=== PATIENT | female | born 1960 | race Hispanic/Latino ===

== ENCOUNTER 2022-07-25 09:01 | Emergency (ER) | payer BC, OTHER ==
[~2022-07-25] VITALS: Ht 157.5 cm; Wt 72.6 kg
[2022-07-25 09:25] LABS: BASOPHILS % (AUTO) 0.3 % (0.0-5.0); EOSINOPHILS % (AUTO) 1.7 % (0.0-8.0); LYMPHOCYTES % (AUTO) 14.5 % (21.0-51.0); MEAN CORPUSCULAR HEMOGLOBIN 28.4 pg (27.0-33.0); MEAN CORPUSCULAR HGB CONC 32.6 g/dL (32.0-36.0); MEAN CORPUSCULAR VOLUME 87.1 fL (79-99); MONOCYTES % (AUTO) 6.1 % (3.0-13.0); NEUTROPHILS % (AUTO) 76.9 % (40.0-77.0); PLATELET COUNT (AUTO) 335 K/uL (130-400); RED BLOOD CELL COUNT(AUTO) 4.82 MIL/uL (4.00-5.50); RED CELL DISTRIBUTION WIDTH 12.8 % (11.0-15.5); WHITE BLOOD COUNT (AUTO) 11.9 K/uL (4.8-10.8)
[2022-07-25] MEDS ORDERED: CLOPIDOGREL 300MG TAB PO ONE (09:30)
[2022-07-25] MEDS ORDERED: ASPIRIN 81MG CHEW TAB PO ONE (09:30)
[2022-07-25 09:41] LABS: INR 0.93 (0.85-1.15); PROTHROMBIN TIME 9.8 SEC (9.6-11.6)
[2022-07-25 09:42] LABS: PARTIAL THROMBOPLASTIN TIME 25.5 SEC (26.3-35.5)
[2022-07-25 09:43] LABS: ALBUMIN 3.7 g/dL (3.5-5.0); CREATININE 1.2 mg/dL (0.5-1.5); POTASSIUM 4.3 mmol/L (3.5-5.1); TOTAL PROTEIN, SERUM 8.1 g/dL (6.0-8.3)
[2022-07-25] MEDS ORDERED: IOHEXOL 350 MG/ML 100ML INFUS..BTL IV ONE (09:46)
[2022-07-25 10:10] LABS: B-TYPE NATRIURETIC PEPTIDE 49 pg/mL (0-100)
[2022-07-25 11:33] LABS: APPEARANCE,URINE CLEAR (CLEAR); BILIRUBIN,URINE NEGATIVE (NEGATIVE); COLOR,URINE LIGHT-YELLOW (YELLOW); GLUCOSE, URINE (UA) >=1000 mg/dL (NEGATIVE); KETONES,URINE NEGATIVE (NEGATIVE); LEUKOCYTE ESTERASE ,URINE NEGATIVE Leu/uL (NEGATIVE); NITRATE,URINE NEGATIVE (NEGATIVE); OCCULT BLOOD,URINE NEGATIVE (NEGATIVE); PH,URINE 5.5 (5.0-8.0); PROTEIN,URINE NEGATIVE (NEGATIVE); UROBILINOGEN,URINE 0.2 mg/dL (0.2-1.0)
[2022-07-25 11:40] LABS: MUCUS,URINE RARE LPF (None Seen); RBC,URINE 0-1 /HPF (0-1); SQUAMOUS EPITHELIAL CELL,UR RARE /HPF (0-2)
[2022-07-25 14:02] VITALS: BP 126/72
== END 2022-07-25 14:18 | disposition home or self-care (01) ==
LOC: EDH 09:01
DX: R20.2 Paresthesia of skin (principal)
CPT/HCPCS: 99291; 70496; 70551; 71045; 82550; 83721; 84484; 80053; 83880; 85025; 85610; 85730; 82948; 81001; 36415; 70498; 93005; 70450; Q9967

== ENCOUNTER 2023-07-27 11:15 | Emergency (ER) | payer BC ==
[~2023-07-27] VITALS: Ht 162.6 cm; Wt 78.0 kg
[2023-07-27 12:48] LABS: BASOPHILS # (AUTO) 0.05 K/uL (0.00-0.20); BASOPHILS % (AUTO) 0.5 % (0.0-5.0); EOSINOPHILS # (AUTO) 0.15 K/uL (0.00-0.70); EOSINOPHILS % (AUTO) 1.6 % (0.0-8.0); HEMATOCRIT 40.3 % (36-48); IMMATURE GRANULOCYTE ABSOLUTE 0.04 K/uL (0-1); LYMPHOCYTES # (AUTO) 1.4 K/uL (1.0-4.8); LYMPHOCYTES % (AUTO) 15.6 % (21.0-51.0); MEAN CORPUSCULAR HEMOGLOBIN 29.4 pg (27.0-33.0); MEAN CORPUSCULAR HGB CONC 34.5 g/dL (32.0-36.0); MEAN CORPUSCULAR VOLUME 85.2 fL (79-99); MONOCYTES # (AUTO) 0.7 K/uL (0.1-1.0); MONOCYTES % (AUTO) 7.2 % (3.0-13.0); NEUTROPHILS # (AUTO) 6.8 K/uL (1.8-7.7); NEUTROPHILS % (AUTO) 74.7 % (40.0-77.0); PLATELET COUNT (AUTO) 343 K/uL (130-400); RED BLOOD CELL COUNT(AUTO) 4.73 MIL/uL (4.00-5.50); RED CELL DISTRIBUTION WIDTH 13.2 % (11.0-15.5); WHITE BLOOD COUNT (AUTO) 9.1 K/uL (4.8-10.8)
[2023-07-27 13:03] LABS: ALBUMIN 3.6 g/dL (3.5-5.0); BILIRUBIN,TOTAL 0.3 mg/dL (0.2-1.0); CREATININE 1.5 mg/dL (0.5-1.5); POTASSIUM 4.1 mmol/L (3.5-5.1)
[2023-07-27 15:18] VITALS: BP 113/72; PULSE 72; RESP 18; O2SAT 97
[2023-07-27] MEDS: 0.9%NACL 1000ML 1,000 ML IV ONE (15:21)
[2023-07-27 15:27] LABS: ADD UA MICROSCOPIC YES; APPEARANCE,URINE CLEAR (CLEAR); BILIRUBIN,URINE NEGATIVE (NEGATIVE); COLOR,URINE LIGHT-YELLOW (YELLOW); GLUCOSE, URINE (UA) >=1000 mg/dL (NEGATIVE); KETONES,URINE NEGATIVE (NEGATIVE); LEUKOCYTE ESTERASE ,URINE NEGATIVE Leu/uL (NEGATIVE); NITRATE,URINE NEGATIVE (NEGATIVE); OCCULT BLOOD,URINE NEGATIVE (NEGATIVE); PROTEIN,URINE NEGATIVE (NEGATIVE); UROBILINOGEN,URINE 0.2 mg/dL (0.2-1.0)
[2023-07-27 15:29] LABS: SQUAMOUS EPITHELIAL CELL,UR RARE /HPF (0-2); WBC,URINE 0-1 /HPF (0-1)
[2023-07-27] MEDS ORDERED: L AC460C PO (16:23)
== END 2023-07-27 16:35 | disposition home or self-care (01) ==
LOC: EDH 11:15
DX: E11.65 Type 2 diabetes mellitus with hyperglycemia (principal); I10 Essential (primary) hypertension; E78.00 Pure hypercholesterolemia, unspecified; Z90.49 Acquired absence of other specified parts of digestive tract; Z98.890 Other specified postprocedural states
CPT/HCPCS: 99283; 96360; 82270; 80053; 85025; 86850; 86900; 86901; 81001; 36415; J7030

== ENCOUNTER → 2024-04-06 | Outpatient (CLI) | payer OTHER ==
[~2024-04-06] MED LIST: L AC460C PO
== END | disposition home or self-care (01) ==
LOC: RAH 11:59
PROVIDERS: ATTEND Internal Medicine Interventional Cardiology
DX: Z13.6 Encounter for screening for cardiovascular disorders (principal)
CPT/HCPCS: 75571

== ENCOUNTER 2024-05-13 11:47 | Emergency (ER) | payer OTHER ==
[~2024-05-13] VITALS: Ht 157.5 cm; Wt 82.1 kg
--- NOTE | 2024-05-13 11:55 | ERN ---
ED Note History of Present Illness Stated Complaint: CHEST PAIN Chief Complaint: Chest Pain Time Seen by MD: 11:52 Dictation: PATIENT IS A 63-YEAR-OLD FEMALE COMING IN TODAY WITH NON RADIATING LEFT CHEST PAIN ONSET YESTERDAY. NO FEVER NO CHILLS NO NAUSEA VOMITING. NO COUGH. HAS A HISTORY OF CHOLESTEROL HYPERTENSION DID NOT GO SEE HER PRIMARY CARE DOCTOR. Allergies: Coded Allergies: No Known Allergies (Unverified Allergy, Unknown, 07/27/23) Home Meds Active Scripts l Acidophil/B Lactis/B Longum (Florajen Digest 15 B Cell Cap) 15 Billion Cell Capsule, 1 EACH PO DAILY for 90 Days, #90 CAP Prov:ANA CASAS. 07/27/23 Past Medical History Past Medical History: Diabetes-Type II, High Cholesterol, Heart Disease, Hypertension Surgical History: Hysterectomy, Cholecystectomy Surgical History Other: RIGHT KNEE, Social History: Negative, Lives with family History: Not Applicable RN Note Reviewed/Agreed w/PFSH: Yes Review of System Dictation CONSTITUTIONAL: NEGATIVE EXCEPT FOR HPI HEAD/FACE: NEGATIVE EXCEPT FOR HPI EENT: NEGATIVE EXCEPT FOR HPI RESPIRATORY: NEGATIVE EXCEPT FOR HPI LEFT ANTERIOR CHEST PAIN GASTROINTESTINAL/ABDOMINAL: NEGATIVE EXCEPT FOR HPI GENITOURINARY: NEGATIVE EXCEPT FOR HPI MUSCULOSKELETAL: NEGATIVE EXCEPT FOR HPI INTEGUMENTARY: NEGATIVE EXCEPT FOR HPI NEUROLOGICAL/PSYCH: NEGATIVE EXCEPT FOR HPI HEMATOLOGIC/LYMPHATIC: NEGATIVE EXCEPT FOR HPI ALL SYSTEMS NEGATIVE, EXCEPT NOTED ABOVE. 13 POINT REVIEW OF SYSTEMS ASSESSED AND ALL NEGATIVE EXCEPT FOR ABOVE. Initial Vital Sign VS Vital Signs Date Time Temp Pulse Resp B/P (MAP) Pulse Ox O2 Delivery O2 Flow Rate FiO2 05/13/24 11:49 98.4 73 18 151/84 98 Room Air 05/13/24 12:53 0 21 Physical Exam Dictation VITAL SIGNS REVIEWED GENERAL APPEARANCE: ALERT, ORIENTED X 3, MILD ACUTE DISTRESS, WELL DEVELOPED, NOURISHED. HEAD AND FACE: NON-TRAUMATIC. EYES: PERRL, PINK CONJUNCTIVAS, EYELID NO TRAUMA, ANTERIOR CHAMBER WITH ARCUS SENILIS. EARS: PINNAS INTACT AND NO SIGNS OF TRAUMA OR ERYTHEMA EAR CANALS CLEAR AND NO DISCHARGE TM NO ERYTHEMA NOSE: NO DISCHARGE, NO BLEEDING. OROPHARYNX: MOUTH NORMAL, TONGUE PINK, PHARYNX CLEAR,NO ERYTHEMA, TONSILS NO EXUDATES, NO ABSCESSES NOTED, MUCOUS MEMBRANE MOIST NECK: SUPPLE, NON-TENDER, NO THYROMEGALY, NO MASSES, NO JVD, NO BRUITS BREAST:DEFERRED CHEST:NO TENDERNESS, NO CREPITUS, NO PARADOXICAL MOVEMENT, NO RETRACTIONS LUNGS:CLEAR, WELL-VENTILATED, SYMMETRIC, NO RALES, NO WHEEZING, NO RHONCHI, NO STRIDOR, GOOD BREATH SOUNDS BILATERALLY HEART: REGULAR RATE, REGULAR RHYTHM, NO MURMUR, NO GALLOPS VASCULAR: NO PERIPHERAL EDEMA, ABDOMEN: SOFT, POSITIVE BOWEL SOUNDS, NONDISTENDED, NO GUARDING, NONTENDER, NO REBOUND, NO MASSES NO HEPATOMEGALY, NO SPLENOMEGALY, NO BATES'S SIGN, NO HERNIAS. RECTAL: DEFERRED GENITAL: DEFERRED NEUROLOGICAL: NORMAL SPEECH, MOTOR FUNCTION INTACT, SENSORY FUNCTION INTACT MUSCULOSKELETAL: NECK NONTENDER, FULL RANGE OF MOTION, BACK NONTENDER, FULL RANGE OF MOTION, EXTREMITIES: NONTENDER, FULL RANGE OF MOTION SKIN: COLOR PINK, DRY, NO TURGOR, NO RASH, NO LACERATIONS, NO ABRASIONS, NO CONTUSIONS. LYMPHATIC: DEFERRED Results (Laboratory/Radiology) Laboratory/Radiology Laboratory Tests Test 05/13/24 11:50 05/13/24 13:19 White Blood Count 9.7 K/uL (4.8-10.8) Red Blood Count 4.64 MIL/uL (4.00-5.50) Hemoglobin 13.0 g/dL (12.0-16.0) Hematocrit 40.3 % (36-48) Mean Corpuscular Volume 86.9 fL (79-99) Mean Corpuscular Hemoglobin 28.0 pg (27.0-33.0) Mean Corpuscular Hemoglobin Concent 32.3 g/dL (32.0-36.0) Red Cell Distribution Width 14.1 % (11.0-15.5) Platelet Count 366 K/uL (130-400) Mean Platelet Volume 10.0 fL (7.5-10.5) Immature Granulocyte % (Auto) 0.4 % (0-1) Neutrophils (%) (Auto) 76.1 % (40.0-77.0) Lymphocytes (%) (Auto) 16.3 % (21.0-51.0) L Monocytes (%) (Auto) 5.4 % (3.0-13.0) Eosinophils (%) (Auto) 1.3 % (0.0-8.0) Basophils (%) (Auto) 0.5 % (0.0-5.0) Neutrophils # (Auto) 7.4 K/uL (1.8-7.7) Lymphocytes # (Auto) 1.6 K/uL (1.0-4.8) Monocytes # (Auto) 0.5 K/uL (0.1-1.0) Eosinophils # (Auto) 0.13 K/uL (0.00-0.70) Basophils # (Auto) 0.05 K/uL (0.00-0.20) Absolute Immature Granulocyte (auto 0.04 K/uL (0-1) Nucleated Red Blood Cells 0.0 % (0.0-0.19) Urine Color LIGHT-YELLOW (YELLOW) Urine Appearance CLEAR (CLEAR) Urine pH 6.0 (5.0-8.0) Urine Specific [place] 1.014 (1.001-1.031) Urine Protein NEGATIVE mg/dL (NEGATIVE) Urine Glucose (UA) >=1000 mg/dL (NEGATIVE) H Urine Ketones NEGATIVE mg/dL (NEGATIVE) Urine Occult Blood NEGATIVE (NEGATIVE) Urine Nitrate NEGATIVE (NEGATIVE) Urine Bilirubin NEGATIVE mg/dL (NEGATIVE) Urine Urobilinogen 0.2 mg/dL (0.2-1.0) Urine Leukocyte Esterase NEGATIVE Sukhwinder/uL Urine RBC 0-1 /HPF (0-1) Urine WBC 0-1 /HPF (0-1) Urine Squamous Epithelial Cells RARE /HPF (0-2) Urine Bacteria None /HPF (None Seen) Sodium Level 139 mmol/L (136-145) Potassium Level 4.0 mmol/L (3.5-5.1) Chloride Level 99 mmol/L (101-111) L Carbon Dioxide Level 28 mmol/L (21-32) Blood Urea Nitrogen 25 mg/dL (7-18) H Creatinine 1.5 mg/dL (0.5-1.0) H Glomerular Filtration Rate Calc 38 mL/min (>90) Random Glucose 200 mg/dL (70-105) H Total Calcium 9.2 mg/dL (8.5-10.1) Total Creatine Kinase 82 U/L (21-232) # B-Type Natriuretic Peptide 55 pg/mL (0-100) Troponin I < 0.05 ng/mL (0.00-0.05) THIRTEEN 50, CHEST X-RAY NEGATIVE Labs Reviewed?: Yes EKG Comment: EKG SINUS RHYTHM/HEART RATE 73/LEFT FASCICULAR BLOCK/NO AXIS DEVIATION ED Course ED Course Orders Procedure Category Date Status Time Vital Signs Per CPOE 05/13/24 Transmitted Routine 11:48 B-Type Natriuretic LAB 05/13/24 Complete Peptide 11:48 Chest 1vw RAD 05/13/24 Resulted 11:48 12 Lead Ekg Tracing- EKG 05/13/24 Resulted Technical 11:48 Oxygen By Nc/Pulse Ox CPOE 05/13/24 Transmitted 11:48 Maintain Iv CPOE 05/13/24 Transmitted 11:48 Iv Insertion CPOE 05/13/24 Transmitted 11:48 Cardiac Monitoring CPOE 05/13/24 Transmitted 11:48 Pulse Oximetry With CPOE 05/13/24 Transmitted Vs And Prn 11:48 Cbc With Differential LAB 05/13/24 Complete 11:48 Activity: Br W/Brp CPOE 05/13/24 Transmitted With Assist 11:48 Creatine Kinase, Total LAB 05/13/24 Complete 11:48 Urinalysis Profile LAB 05/13/24 Complete 11:48 Troponin Poc Order LAB 05/13/24 Complete Only 11:48 Bedside Troponin-I LAB.ER 05/13/24 Complete (Poc) 11:48 Basic Metabolic Panel LAB 05/13/24 Complete 11:48 Vital Signs Date Time Temp Pulse Resp B/P (MAP) Pulse Ox O2 Delivery O2 Flow Rate FiO2 05/13/24 14:08 62 12 132/73 98 Room Air* 0 05/13/24 12:53 97.3 77 18 135/73 98 Room Air* 0 05/13/24 11:49 98.4 73 18 151/84 98 Room Air 1355, CARDIAC WORKUP NEGATIVE CHEST X-RAY CLEAR DIAGNOSIS ATYPICAL CHEST PAIN, UNCONTROLLED DIABETES, STAGE 3 CHRONIC KIDNEY DISEASE. DISCHARGED HOME AND TOLD TO FOLLOW UP WITH HER PRIMARY CARE DOCTOR HEART Score Response (Comments) Value EKG: Repolarization changes 1 Age: 45-65yrs (+1) 1 Risk Factors: 1-2 risk factors (+1) 1 Initial Troponin: Normal limit (0) 0 Total 3 Medical Decision Making MDM MDM: DIFFERENTIAL DIAGNOSIS: ACS/AMI/BRONCHITIS/PNEUMONIA/ELECTROLYTE IMBALANCE/DEHYDRATION/PULMONARY LESION RATIONALE: TESTS CONSIDERED AND ORDERED SECONDARY TO SHARED DECISION MAKING INCLUDE: EKG/LABS/RADIOLOGY PREVIOUS OUTSIDE RECORDS REVIEWED: OLD ER VISITS. REVIEWED RISK OF COMPLICATION AND/OR MORBIDITY OR MORTALITY OF PATIENT MANAGEMENT: NONE MEDICATIONS-PER MEDICATION RECONCILIATION SEE NURSE'S NOTES NEED FOR HOSPITALIZATION: PATIENT DOES NOT MEET CRITERIA FOR HOSPITALIZATION. NO NEED FOR EMERGENCY MAJOR/MINOR SURGERY: NO THERE ARE NO SOCIAL CONCERNS WITH THIS PATIENT. PRESCRIPTION DRUG MANAGEMENT [id number] TYLENOL OR IBUPROFEN PRESCRIPTIONS WILL INCLUDE SYMPTOMATIC CARE PATIENT'S PRIOR EXTERNAL MEDICAL RECORDS FROM OTHER ER VISITS WERE REVIEWED BY ME INDICATED. PRIOR TESTING AND RESULTS FROM PREVIOUS VISITS WERE REVIEWED. PRIOR TESTS WERE TAKEN INTO ACCOUNT WITH MEDICAL DECISION MAKING AND RESOURCE UTILIZATION, INDEPENDENT HISTORIAN/HISTORIANS WERE USED TO OBTAIN COMPLETE MEDICAL HISTORY. I INDEPENDENTLY INTERPRETED THE TEST THAT WERE PERFORMED, RESULTS WERE REVIEWED BY ME AND CONSIDERED FINDINGS ON RADIOLOGY IF ORDERED. MEDICAL MANAGEMENT AND EXAMINATION INTERPRETATION DISCUSSIONS WERE HAD BY ME WITH OTHER QUALIFIED HEALTHCARE PROFESSIONALS INDICATED FOR THE PATIENT'S CARE. DX & DISP Disposition: Discharge Departure Impression: Primary Impression: Atypical chest pain Additional Impressions: Uncontrolled diabetes mellitus, Stage III chronic kidney disease Condition: Stable Additional Instructions: FOLLOW-UP WITH PRIMARY CARE PROVIDER IN 1 TO 2 DAYS. TAKE MEDICATIONS DIRECTED HERE IN THE EMERGENCY ROOM. OKAY TO CONTINUE HOME MEDICATIONS UNLESS OTHERWISE DISCUSSED DURING YOUR VISIT IN THE EMERGENCY ROOM TODAY. RETURN TO YOUR NEAREST EMERGENCY ROOM IF SYMPTOMS WORSEN OR IF THERE IS NO IMPROVEMENT. CALL 911 IF YOU NEED IMMEDIATE ASSISTANCE. TAKE TYLENOL OR MOTRIN [id number] NEEDED AND IF NO CONTRAINDICATIONS ARE PRESENT. INCREASE ORAL HYDRATION. A WOUND CULTURE OR URINE CULTURE WAS ORDERED HERE IN THE EMERGENCY ROOM DEPARTMENT PLEASE FOLLOW-UP WITH PRIMARY CARE PROVIDER AND ADVISE THEM TO GET REPEAT PORTS FROM OUR FACILITY. IF YOU HAD ANY EDWINA WRAP/SPLINTS THAT WERE APPLIED HERE, PLEASE DO NOT REMOVE THEM UNTIL YOU SEE YOUR PRIMARY CARE OR SPECIALTY. FOLLOW UP WITH YOUR PRIMARY CARE DOCTOR IN 1-2 DAYS. Referrals: JUAN CARLOS HE DO (PCP) Time of Disposition: 13:58 I have reviewed the case, and I agree with, Diagnosis and Plan ATTESTATION BY PHYSICIAN I PERFORMED THE SUBSTANTIVE PORTION OF THE VISIT. I HAVE REVIEWED AND PERSONALLY MADE AND APPROVED THE MANAGEMENT PLAN THAT IS DOCUMENTED IN THE NOTE BY MYSELF FOR THE A PP. I ACKNOWLEDGED FOR RESPONSIBILITY FOR THE PATIENT'S MANAGEMENT PLAN. JESSICA ARROYO NP May 13, 2024 11:55 EDWIN FREED MD May 13, 2024 17:26
--- NOTE | 2024-05-13 12:23 | NUR ---
PT JUST NOW PLACED IN MY ED BED 4
[2024-05-13 12:33] LABS: APPEARANCE,URINE CLEAR (CLEAR); BILIRUBIN,URINE NEGATIVE (NEGATIVE); COLOR,URINE LIGHT-YELLOW (YELLOW); GLUCOSE, URINE (UA) >=1000 mg/dL (NEGATIVE); KETONES,URINE NEGATIVE (NEGATIVE); LEUKOCYTE ESTERASE ,URINE NEGATIVE Leu/uL (NEGATIVE); NITRATE,URINE NEGATIVE (NEGATIVE); OCCULT BLOOD,URINE NEGATIVE (NEGATIVE); PROTEIN,URINE NEGATIVE (NEGATIVE); UROBILINOGEN,URINE 0.2 mg/dL (0.2-1.0)
[2024-05-13 12:36] LABS: ADD UA MICROSCOPIC YES
[2024-05-13 12:38] LABS: CREATININE 1.5 mg/dL (0.5-1.0)
[2024-05-13 12:39] LABS: MUCUS,URINE RARE LPF (None Seen); RBC,URINE 0-1 /HPF (0-1); SQUAMOUS EPITHELIAL CELL,UR RARE /HPF (0-2); WBC,URINE 0-1 /HPF (0-1)
[2024-05-13 12:46] LABS: BASOPHILS # (AUTO) 0.05 K/uL (0.00-0.20); BASOPHILS % (AUTO) 0.5 % (0.0-5.0); EOSINOPHILS # (AUTO) 0.13 K/uL (0.00-0.70); EOSINOPHILS % (AUTO) 1.3 % (0.0-8.0); HEMATOCRIT 40.3 % (36-48); IMMATURE GRANULOCYTE ABSOLUTE 0.04 K/uL (0-1); LYMPHOCYTES # (AUTO) 1.6 K/uL (1.0-4.8); LYMPHOCYTES % (AUTO) 16.3 % (21.0-51.0); MEAN CORPUSCULAR HGB CONC 32.3 g/dL (32.0-36.0); MEAN CORPUSCULAR VOLUME 86.9 fL (79-99); MONOCYTES # (AUTO) 0.5 K/uL (0.1-1.0); MONOCYTES % (AUTO) 5.4 % (3.0-13.0); NEUTROPHILS # (AUTO) 7.4 K/uL (1.8-7.7); NEUTROPHILS % (AUTO) 76.1 % (40.0-77.0); PLATELET COUNT (AUTO) 366 K/uL (130-400); RED BLOOD CELL COUNT(AUTO) 4.64 MIL/uL (4.00-5.50); RED CELL DISTRIBUTION WIDTH 14.1 % (11.0-15.5); WHITE BLOOD COUNT (AUTO) 9.7 K/uL (4.8-10.8)
[2024-05-13 12:53] VITALS: TEMP 97.3
[2024-05-13 12:54] LABS: B-TYPE NATRIURETIC PEPTIDE 55 pg/mL (0-100)
--- NOTE | 2024-05-13 13:00 | NUR ---
REPORT ENDORSED TO DUC MITCHELL
--- NOTE | 2024-05-13 13:37 | EKG ---
[facility] Test Date: 2024-05-13 Test Time: 11:43:45 Pat Name: KERRY MCLEAN Department: ED Room: Gender: F Drug Safety Associate: [id number] : 1960 Requested By: EDWIN FREED Order Number: [id number] Reading MD: Abram Cleaning Measurements Intervals [place] Rate: 74 P: 17 SC: 180 QRS: -47 QRSD: 88 T: 35 QT: 393 QTc: 436 Interpretive Statements Sinus rhythm Left anterior fascicular block Compared to ECG 07/25/2022 09:14:46 Left anterior fascicular block now present Left-axis deviation no longer present Electronically Signed On 05-13-2024 16:16:56 [employer] DRIVER by Abram Cleaning Please click the below link to view image of tracing.
[2024-05-13 14:08] VITALS: BP 132/73; PULSE 62; RESP 12; O2SAT 98
--- NOTE | 2024-05-13 15:05 | HMCIMG ---
CHEST 1VW HISTORY: Chest pain COMPARISON: 07/25/2022 FINDINGS: A frontal projection of the chest was obtained. No acute pulmonary infiltrates is seen. The heart is normal in size. Prominent interstitial markings are seen. No evidence of aortic calcification is seen. IMPRESSION: 1. No acute pulmonary infiltrate is seen.
== END 2024-05-13 14:16 | disposition home or self-care (01) ==
LOC: EDH 11:47
DX: R07.89 Other chest pain (principal); E11.65 Type 2 diabetes mellitus with hyperglycemia; I12.9 Hypertensive chronic kidney disease with stage 1 through stage 4 chronic kidney disease, or unspecified chronic kidney disease; E11.22 Type 2 diabetes mellitus with diabetic chronic kidney disease; N18.30 Chronic kidney disease, stage 3 unspecified; E78.00 Pure hypercholesterolemia, unspecified; Z79.899 Other long term (current) drug therapy; Z90.49 Acquired absence of other specified parts of digestive tract; Z90.710 Acquired absence of both cervix and uterus; Z98.890 Other specified postprocedural states
CPT/HCPCS: 36415; 71045; 80048; 81001; 82550; 83880; 84484; 85025; 93005; 99285

== ENCOUNTER 2025-04-25 05:40 | Emergency (ER) | payer OTHER ==
[2025-04-25 08:43] LABS: ASPARTATE AMINOTRANSFERASE 27.0 U/L (10-37); CREATININE 1.2 mg/dL (0.5-1.0); GLOMERULAR FILTR. RATE CALC 50.0 mL/min (>90); GLUCOSE,RANDOM 151.0 mg/dL (70-105); SODIUM SERUM 137.0 mmol/L (136-145); TOTAL PROTEIN, SERUM 8.0 g/dL (6.0-8.3); UREA NITROGEN, BLOOD 32.0 mg/dL (7-18)
[2025-04-25 08:51] LABS: IMMATURE GRANULOCYTE ABSOLUTE 0.03 K/uL (0-1); INR 0.95 (0.85-1.15); NUCLEATED RED BLOOD CELLS 0.0 % (0.0-0.19); PLATELET COUNT (AUTO) 373 K/uL (130-400); RED BLOOD CELL COUNT(AUTO) 4.67 MIL/uL (4.00-5.50); RED CELL DISTRIBUTION WIDTH 14.6 % (11.0-15.5); WHITE BLOOD COUNT (AUTO) 8.9 K/uL (4.8-10.8)
--- NOTE | 2025-04-25 09:00 | HMCIMG ---
EXAM: CT Abdomen and Pelvis Without IV contrast CLINICAL HISTORY: ABD PAIN TECHNIQUE: Axial computed tomography images of the abdomen and pelvis without intravenous contrast. CONTRAST: No IV contrast. COMPARISON: None provided. FINDINGS: LUNG BASES: The lung bases appear clear. No pleural effusions are seen. LIVER: Unremarkable. GALLBLADDER AND BILE DUCTS: Cholecystectomy. PANCREAS: Unremarkable. SPLEEN: Unremarkable. ADRENAL GLANDS: Unremarkable. KIDNEYS, URETERS, AND BLADDER: The kidneys appear within normal limits. There is no hydronephrosis or hydroureter. No urinary calculi are seen. STOMACH AND BOWEL: Unremarkable appearance of the stomach and bowel. No evidence of bowel obstruction. No evidence suggesting enteritis or colitis. APPENDIX: No evidence of acute appendicitis on CT examination. PERITONEUM: No free fluid. No free air. LYMPH NODES: No lymphadenopathy is evident. REPRODUCTIVE: Unremarkable as visualized. VASCULATURE: No evidence of abdominal aortic aneurysm. BONES: No aggressive appearing osseous lesion. No acute osseous pathology evident. MISCELLANEOUS: Fat-containing umbilical hernia. Infiltration within the left ventral wall fat could be due to contusion; image 39. Correlate clinically. IMPRESSION: 1. No acute intraabdominal or pelvic pathology. 2. Fat-containing umbilical hernia. 3. Infiltration within the left ventral wall fat, possibly due to contusion. Correlate clinically. 4. Status post cholecystectomy. /[place]
--- NOTE | 2025-04-25 09:27 | HMCIMG ---
EXAM: CT Head Without IV contrast. CLINICAL HISTORY: HEADACHE/ DIZZINESS TECHNIQUE: Axial computed tomography images of the head/brain without intravenous contrast. COMPARISON: None provided. FINDINGS: BRAIN: No evidence of acute hemorrhage. No mass lesion. No CT evidence for acute territorial infarct. No midline shift or extra-axial collections. Diffuse cerebral atrophy with chronic periventricular small vessel ischemic changes. VENTRICLES: No hydrocephalus. ORBITS: The orbits are unremarkable. SINUSES AND MASTOIDS: The paranasal sinuses and mastoid air cells are clear. BONES: No fracture. SOFT TISSUES: Unremarkable. IMPRESSION: No acute intracranial abnormality. Diffuse cerebral atrophy with chronic periventricular small vessel ischemic changes. /[place]
[2025-04-25] MEDS ORDERED: ONDA-243 PO (09:35)
--- NOTE | 2025-04-25 09:35 | ERN ---
ED Note History of Present Illness Stated Complaint: PALPATATIONS Time Seen by MD: 08:12 Dictation: 64-year-old female presenting to the emergency department with palpitations and diffuse abdominal discomfort. Patient was seen during downtime and initial orders were given through paper and translated on EMR. Patient reports some nausea diffuse pain and palpitations on and off since last night now resolved no chest pain or shortness of breath at current time. Allergies: Coded Allergies: No Known Allergies (Unverified Allergy, Unknown, 07/27/23) Home Meds Active Scripts l Acidophil/B Lactis/B Longum (Florajen Digest 15 B Cell Cap) 15 Billion Cell Capsule, 1 EACH PO DAILY for 90 Days, #90 CAP Prov:ANA CASAS. 07/27/23 Past Medical History Past Medical History: Diabetes-Type II, High Cholesterol, Heart Disease, Hypertension Surgical History: Hysterectomy, Cholecystectomy Surgical History Other: RIGHT KNEE, Social History: Negative, Lives with family History: Not Applicable Review of System Dictation Constitutional: Negative for fever,chills, and weight loss Eyes: Negative for injury, pain,redness, and discharge ENT: Negative for injury,pain or swelling Cardiovascular: Per HPI Respiratory: Negative for shortness of breath, cough, and wheezing, Abdomen/GI: Per HPI : Negative for injury, bleeding and discharge MS/Extremity: Negative for injury and deformity Skin: Negative for rash, and discoloration Neuro: Negative for headache, weakness, numbness, tingling, and seizure Psych: Negative for suicide ideation, homicidal ideation, and hallucinations Initial Vital Sign VS General: awake, alert, NAD Head/Face: Normocephalic, atraumatic Eyes: PERRL, EOMI, vision at baseline ENT: oral cavity clear, TMs clear, no signs of infection Neck: Trachea midline, supple, no nuchal rigidity Cardiovascular: RRR, normal S1/S2, No MRGs, no JVD Respiratory: CTAB, no respiratory distress, No rales or wheezes Abdomen: Soft, diffuse abdominal discomfort, non-distended, normal bowel sounds, no guarding or rebound. Skin: Warm, dry, normal turgor, no rash MS/Extremity: Pulses equal, no cyanosis, neurovascular intact, FROM Neuro: COAx4, GCS 15, strength 5/5, CN 2-12 intact, normal cerebellar exam, normal gait, Psych: Normal behavior, mood, and affect normal Physical Exam Dictation General: awake, alert, NAD Head/Face: Normocephalic, atraumatic Eyes: PERRL, EOMI, vision at baseline ENT: oral cavity clear, TMs clear, no signs of infection Neck: Trachea midline, supple, no nuchal rigidity Cardiovascular: RRR, normal S1/S2, No MRGs, no JVD Respiratory: CTAB, no respiratory distress, No rales or wheezes Abdomen: Soft, diffuse tenderness to palpation non-distended, normal bowel soun ds, no guarding or rebound. Skin: Warm, dry, normal turgor, no rash MS/Extremity: Pulses equal, no cyanosis, neurovascular intact, FROM Neuro: COAx4, GCS 15, strength 5/5, CN 2-12 intact, normal cerebellar exam, normal gait, Psych: Normal behavior, mood, and affect normal Results (Laboratory/Radiology) Laboratory/Radiology Laboratory Tests Test 04/25/25 06:31 White Blood Count 8.9 K/uL (4.8-10.8) Red Blood Count 4.67 MIL/uL (4.00-5.50) Hemoglobin 12.8 g/dL (12.0-16.0) Hematocrit 40.2 % (36-48) Mean Corpuscular Volume 86.1 fL (79-99) Mean Corpuscular Hemoglobin 27.4 pg (27.0-33.0) Mean Corpuscular Hemoglobin Concent 31.8 g/dL (32.0-36.0) L Red Cell Distribution Width 14.6 % (11.0-15.5) Platelet Count 373 K/uL (130-400) Mean Platelet Volume 10.0 fL (7.5-10.5) Immature Granulocyte % (Auto) 0.3 % (0-1) Neutrophils (%) (Auto) 62.1 % (40.0-77.0) Lymphocytes (%) (Auto) 27.2 % (21.0-51.0) Monocytes (%) (Auto) 8.3 % (3.0-13.0) Eosinophils (%) (Auto) 1.8 % (0.0-8.0) Basophils (%) (Auto) 0.3 % (0.0-5.0) Neutrophils # (Auto) 5.6 K/uL (1.8-7.7) Lymphocytes # (Auto) 2.4 K/uL (1.0-4.8) Monocytes # (Auto) 0.7 K/uL (0.1-1.0) Eosinophils # (Auto) 0.16 K/uL (0.00-0.70) Basophils # (Auto) 0.03 K/uL (0.00-0.20) Absolute Immature Granulocyte (auto 0.03 K/uL (0-1) Nucleated Red Blood Cells 0.0 % (0.0-0.19) Prothrombin Time 10.1 SEC (9.6-11.6) Prothromb Time International Ratio 0.95 (0.85-1.15) Activated Partial Thromboplast Time 24.3 SEC (26.3-35.5) L Sodium Level 137 mmol/L (136-145) Potassium Level 4.3 mmol/L (3.5-5.1) Chloride Level 100 mmol/L (101-111) L Carbon Dioxide Level 29 mmol/L (21-32) Blood Urea Nitrogen 32 mg/dL (7-18) H Creatinine 1.2 mg/dL (0.5-1.0) H Glomerular Filtration Rate Calc 50 mL/min (>90) Random Glucose 151 mg/dL (70-105) H Total Calcium 9.3 mg/dL (8.5-10.1) Total Bilirubin 0.4 mg/dL (0.2-1.0) Aspartate Amino Transf (AST/SGOT) 27 U/L (10-37) Alanine Aminotransferase (ALT/SGPT) 35 U/L (12-78) Alkaline Phosphatase 80 U/L (50-136) Troponin I High Sensitivity 19 ng/L (4-50) Total Protein 8.0 g/dL (6.0-8.3) Albumin 3.9 g/dL (3.5-5.0) Labs Reviewed?: Yes EKG Comment: Heart rate 69 normal sinus rhythm left axis deviation no STEMI or STEMI equivalent ED Course ED Course Orders Procedure Category Date Status Time Ondansetron 4mg Inj PHA 04/25/25 Complete (Zofran 4mg Inj) 06:51 Morphine 2mg Syg PHA 04/25/25 Complete (Morphine 2mg Syg) 06:51 Cbc With Differential LAB 04/25/25 Complete 06:31 Comprehensive LAB 04/25/25 Complete Metabolic Panel 06:31 Pt And Ptt LAB 04/25/25 Complete 06:31 Troponin I High LAB 04/25/25 Complete Sensitivity 06:31 Ct Abdomen/Pelvis W/O CT 04/25/25 Resulted Contrast 08:38 Chest 1vw RAD 04/25/25 Taken 08:40 Ct Head/Brain W/O CT 04/25/25 Resulted Contrast 08:44 Current Medications Medications (Trade) Dose Ordered Sig/Deidra Route PRN Reason Start Time Stop Time Status Last Admin Dose Admin Morphine Sulfate (morPHINE 2MG SYG) 2 mg STK-MED ONCE .ROUTE 04/25/25 06:51 04/25/25 08:07 DC Ondansetron HCl (zoFRAN 4MG INJ) 4 mg STK-MED ONCE .ROUTE 04/25/25 06:51 04/25/25 08:07 DC Medical Decision Making MDM MDM: Differential diagnosis: Rationale: Tests considered and ordered secondary to shared decision making include: Previous outside records reviewed: Old ER visits. Risk of complication and/or morbidity or mortality of patient management: None Medications-Per medication reconciliation Need for hospitalization: Patient does not meet criteria for hospitalization. Need for emergency major/minor surgery: No There are no social concerns with this patient. Prescription drug management Prescriptions will include symptomatic care Patient's prior external medical records from other ER visits were reviewed by me as indicated. Prior testing and results from previous visits were reviewed. Prior tests were taken into account with medical decision making and resource utilization, independent historian/historians were used to obtain complete medical history. I independently interpreted the test that were performed, results were reviewed by me and considered findings on radiology if ordered. Medical management and examination interpretation discussions were had by me with other qualified healthcare professionals as indicated for the patient's care. 64-year-old female with abdominal pain and palpitations negative workup, CT scan was stable, negative cardiac workup no chest pain now low heart score of one stable for discharge. DX & DISP Disposition: Discharge Departure Impression: Primary Impression: Acute abdominal pain Additional Impression: Palpitations Condition: Stable Scripts Ondansetron (Ondansetron Odt) 4 Mg Tab.rapdis 1 TAB PO BID PRN for nausea/vomiting for 5 Days, #10 TAB 0 Refills Prov: KENNETH TRAVIS MD 04/25/25 Referrals: JUAN CARLOS HE DO (PCP) THADDEUSKENNETH PALUMBO MD Apr 25, 2025 09:35
[2025-04-25 09:53] VITALS: BP 148/74; PULSE 73; RESP 18; TEMP 98.3; O2SAT 99
--- NOTE | 2025-04-25 09:58 | NUR ---
SEE DOWN TIME FORMS
--- NOTE | 2025-04-25 10:00 | NUR ---
PT STABLE NO DISTRESS, VITALS WNL NO C/O PT IV REMOVED, PT GIVEN INSTRUCRITONS VERBALIZED UNDERSTANDING. PT TAKEN OUT IN W/C DRIVEN HOME BY SON.
--- NOTE | 2025-04-25 10:03 | HMCIMG ---
EXAM: CR Chest, 1 View. CLINICAL HISTORY: COUGH COMPARISON: None provided. FINDINGS: LUNGS: The lungs show no infiltrate or other acute finding. PLEURAL SPACES: No evidence of pleural effusion or pneumothorax. MEDIASTINUM: The cardiomediastinal silhouette is within normal limits. BONES: No acute osseous abnormality. IMPRESSION: No acute cardiopulmonary pathology is evident. /[place]
--- NOTE | 2025-04-25 19:02 | EKG ---
[facility] Test Date: 2025-04-25 Test Time: 06:11:26 Pat Name: KERRY MCLEAN Department: ED Room: Gender: F Sock Knitter: [id number] : 1960 Requested By: KENNETH TRAVIS Order Number: [id number] Reading MD: Camille Crandall Measurements Intervals [place] Rate: 69 P: 28 NC: 146 QRS: -37 QRSD: 101 T: 27 QT: 419 QTc: 448 Interpretive Statements Sinus rhythm Left axis deviation Compared to ECG 05/13/2024 11:43:45 Left-axis deviation now present Left anterior fascicular block no longer present Electronically Signed On 04-27-2025 12:39:12 SHELTER SUPERVISOR by Camille Crandall Please click the below link to view image of tracing.
== END 2025-04-25 10:23 | disposition home or self-care (01) ==
LOC: EDH 05:40
DX: R00.2 Palpitations (principal); R10.9 Unspecified abdominal pain; E11.9 Type 2 diabetes mellitus without complications; E78.00 Pure hypercholesterolemia, unspecified; I11.9 Hypertensive heart disease without heart failure; Z90.49 Acquired absence of other specified parts of digestive tract; Z90.710 Acquired absence of both cervix and uterus
CPT/HCPCS: 36415; 70450; 71045; 74176; 80053; 84484; 85025; 85610; 85730; 93005; 99285; J2270; J2405